=== PATIENT | female | born 1980 | race American Indian/Alaskan Native ===

== ENCOUNTER 2018-08-15 11:34 | Observation (INO) | payer MEDICAID ==
--- NOTE | 2018-08-10 10:29 | Anesthesia Consultation ---
Anesthesia Consult and Med Hx Date of service: 07/18/18 - Airway Anesthetic Teeth Evaluation: Good ROM Head & Neck: Adequate Mental/Hyoid Distance: Adequate Mallampati Class: Class III Intubation Access Assessment: Probably Good - Pulmonary Exam CTA: Yes - Cardiac Exam Cardiac Exam: No Murmur - Pre-Operative Health Status ASA Pre-Surgery Classification: ASA3 Proposed Anesthetic Plan: General - Pulmonary Hx Smoking: Yes (half a pack a day since age 16) Hx Asthma: No COPD: No Hx Pneumonia: No - Cardiovascular System Hx Hypertension: Yes (x 7 years) - Central Nervous System Hx Seizures: No Hx Psychiatric Problems: No - Endocrine Hx Renal Disease: No Hx End Stage Renal Disease: No Hx Hypothyroidism: No Hx Hyperthyroidism: No - Hematic Hx Anemia: No Hx Sickle Cell Disease: No - Other Systems Hx Alcohol Use: Yes (Occas) Hx Cancer: No Hx Obesity: Yes
[2018-08-10 10:32] LABS: Basophils % (Auto) 0.7 % (0.0-1.8); Eosinophils % (Auto) 0.8 % (0.0-4.3); Hematocrit 39.8 % (30.3-42.9); Hemoglobin 13.1 gm/dl (10.1-14.3); Lymphocytes # (Auto) 1.3 K/mm3 (1.2-5.4); Lymphocytes % (Auto) 24.1 % (13.4-35.0); Mean Corpuscular HGB Conc 33 % (30-34); Mean Corpuscular Volume 76 fl (79-97); Monocytes # (Auto) 0.4 K/mm3 (0.0-0.8); Monocytes % (Auto) 7.7 % (0.0-7.3); Platelet Count 183 K/mm3 (140-440); Red Blood Count 5.26 M/mm3 (3.65-5.03); Red Cell Distribution Width 17.8 % (13.2-15.2)
[2018-08-15] MEDS ORDERED: SUBLIMAZE IV PRN (12:50)
[2018-08-15] MEDS ORDERED: ZOFRAN IV PRN ×2 (12:50→18:56)
[2018-08-15] MEDS ORDERED: NARCAN 0.4 MG/1 ML IV PRN (12:50)
[2018-08-15] MEDS ORDERED: SUBLIMAZE IV ONE (12:50)
--- NOTE | 2018-08-15 12:50 | Anesthesia Day of Surgery ---
Anesthesia Day of Surgery - Day of Surgery Patient Examined: Yes Patient H&P Reviewed: Yes Patient is NPO: Yes Beta Blockers: No Cardiac Clearance: No Pulmonary Clearance: No
[2018-08-15] MEDS ORDERED: NEURONTIN PO NR (13:00)
[2018-08-15] MEDS ORDERED: VERSED IV NR (13:00)
[2018-08-15] MEDS ORDERED: LACTATED RINGERS 1,000 ML IV SCH (13:00)
[2018-08-15] MEDS ORDERED: TYLENOL PO NR (13:00)
--- NOTE | 2018-08-15 14:47 | History and Physical Report ---
History of Present Illness Date of examination: 08/15/18 Chief complaint: Symptomatic uterine fibroids History of present illness: Pt is a 37yo BF LMP 07/25/2018 presents for surgical evaluation and treatment of symptomatic uterine fibroids. Patient complains of pelvic pain and prolonged heavy vaginal bleeding. Pelvic ultrasound showed the uterus to be enlarged measuring 9 x 7 x 6 cm with six small fibroids and a complex left ovarian cyst. She desires a Robotic-Assisted Total Hysterectomy with ovarian conservation. Past History Past Medical History: hypertension, GERD Past Surgical History: [employer] History: fibroids Social history: no significant social history, single - Obstetrical History : 5 Medications and Allergies Allergies Allergy/AdvReac Type Severity Reaction Status Date / Time No Known Allergies Allergy Verified 08/09/18 14:49 Home Medications Medication Instructions Recorded Confirmed Last Taken Type amLODIPine [Norvasc] 10 mg PO DAILY 08/09/18 08/15/18 08/15/18 06:00 History Active Meds: Active Medications Acetaminophen (Tylenol) 650 mg PO PREOP NR Stop: 08/15/18 23:59 Last Admin: 08/15/18 13:09 Dose: 650 mg Documented by: Fentanyl (Sublimaze) 50 mcg IV Q5MIN PRN PRN Reason: Pain , Severe (7-10) Stop: 08/15/18 23:59 Gabapentin (Neurontin) 300 mg PO PREOP NR Stop: 08/15/18 23:59 Last Admin: 08/15/18 13:14 Dose: 300 mg Documented by: Hydromorphone HCl (Dilaudid) 0.5 mg IV Q10MIN PRN PRN Reason: Pain , Severe (7-10) Lactated Ringer's (Lactated Ringers) 1,000 mls @ 75 mls/hr IV DIRECT FAISAL Last Admin: 08/15/18 13:05 Dose: 75 mls/hr Documented by: Midazolam HCl (Versed) 2 mg IV PREOP NR Stop: 08/15/18 23:59 Naloxone HCl (Narcan 0.4 Mg/1 Ml) 0.1 mg IV Q2MIN PRN PRN Reason: Res Rate </= 8 or 02 SAT < 92% Ondansetron HCl (Zofran) 4 mg IV ONCE PRN PRN Reason: Nausea And Vomiting Review of Systems All systems: negative - Vital Signs Vital signs: Vital Signs Temp Pulse Resp BP Pulse Ox 99.8 F H 90 20 150/99 99 08/10/18 10:05 08/10/18 10:05 08/10/18 10:05 08/10/18 10:05 08/10/18 10:05 Temp Pulse Resp BP Pulse Ox 98.0 F 84 16 150/99 100 08/15/18 12:00 08/15/18 12:00 08/15/18 13:09 08/15/18 12:00 08/15/18 12:00 - Physical Exam Breasts: Positive: deferred Cardiovascular: Regular rate Lungs: Positive: Clear to auscultation Abdomen: Positive: normal appearance Genitourinary (Female): Positive: normal external genitalia Vagina: Positive: normal moisture Uterus: Positive: enlarged Extremities: Positive: normal Results Result Diagrams: 08/10/18 10:10 All other labs normal. Ultrasound: report reviewed Assessment and Plan - Patient Problems (1) Uterine fibroid Onset Date: 08/15/18 Current Visit: Yes Status: Acute Qualifiers: Uterine leiomyoma location: intramural, submucous, and subserous Qualified Code(s): D25.1 - Intramural leiomyoma of uterus; D25.0 - Submucous leiomyoma of uterus; D25.2 - Subserosal leiomyoma of uterus Plan to address problem: A: Symptomatic uterine fibroids Menorrhagia Left ovarian cyst P: Admit for a Robotic-Assisted Total Hysterectomy with Bilateral salpingectomy (2) Menorrhagia with regular cycle Current Visit: Yes Status: Acute (3) Left ovarian cyst Onset Date: 08/15/18 Current Visit: Yes Status: Acute
[2018-08-15] MEDS ORDERED: ANCEF/STERILE WATER 2 GM/20 ML 2 GM/20 ML SYRINGE IV NR (15:00)
[2018-08-15] MEDS ORDERED: MARCAINE 0.5% INFILTRATI ONE ×2 (16:08)
[2018-08-15] MEDS ORDERED: DIPRIVAN 10 MG/ML IV ONE (16:45)
[2018-08-15] MEDS ORDERED: SUBLIMAZE ONE ×2 (16:45→17:26)
[2018-08-15] MEDS ORDERED: NEO SYNEPHRINE/NS Syringe(OR USE) IV ONE (16:53)
[2018-08-15] MEDS ORDERED: XYLOCAINE MPF 2% ONE (16:53)
[2018-08-15] MEDS ORDERED: ZEMURON IV ONE (16:53)
[2018-08-15] MEDS ORDERED: QUELICIN ONE (16:53)
[2018-08-15] MEDS ORDERED: ROBINUL ONE (16:53)
[2018-08-15] MEDS ORDERED: NEOSPORIN GU IR ONE (17:00)
[2018-08-15] MEDS ORDERED: TYLENOL PO PRN (18:56)
[2018-08-15] MEDS ORDERED: MILK OF MAGNESIA PO PRN (18:56)
[2018-08-15] MEDS ORDERED: NORCO 5/325 PO PRN (18:56)
[2018-08-15] MEDS ORDERED: SODIUM CHLORIDE FLUSH SYRINGE 10 ML IV PRN (18:56)
[2018-08-15] MEDS ORDERED: D5LR 1,000 ML IV SCH (19:00)
[2018-08-15] MEDS ORDERED: APRESOLINE IV PRN (19:26)
[2018-08-15] MEDS ORDERED: APRESOLINE ONE (19:39)
--- NOTE | 2018-08-15 19:44 | Operative Report ---
Operative Report Operative Report: Date of procedure: 08/15/2018 Pre-operative diagnosis: 1. Symptomatic uterine fibroids 2. Menorrhagia 3. Left ovarian cyst Post-operative diagnosis: Same Procedure name(s): 1. Robotic-assisted total hysterectomy 2. Bilateral salpingectomy 3. Left ovarian cystectomy Surgeon: Rayray Flores MD Tow Truck Dispatcher: Maisha Quiros CSA Anesthesia: DORON Block followed by general endotracheal intubation EBL: 100 mL's Findings: A 10-12 week size uterus with multiple fibroids. Left ovarian cyst. Normal tubes bilaterally and normal right ovary. Procedure: After the patient's first correctly identified she was prepped and draped in the usual sterile fashion and placed in the dorsolithotomy position. The bladder was first catheterized using Becker catheter and the speculum was placed in the vagina and the anterior lip of the cervix was grasped using a single-tooth tenaculum, and the medium Vesicare cup was placed. The tenaculum and speculum was then removed from the vagina and attention was then turned to the abdomen. The skin knife was used to make a small incision approximately 5 cm above the umbilicus through which a 12 mm trocar was placed under direct visualization. After adequate amount of abdominal insufflation visualization of the pelvic organs found the uterus to be enlarged and the tubes and ovaries were found to be normal bilaterally. There was a small left ovarian cyst. A right and left paramedian incision was made through which the 8 mm trochars were placed under direct visualization and a 5 mm trocar was placed in the right lower quadrant. The patient was then placed in steep Trendelenburg positioning and the robot was docked on the patient's left side. After all the robotic ports were connected and adequate functioning of the robotic arms were tested the surgeon then proceeded to the console to begin the hysterectomy. First the left round ligament was grasped, cauterized and cut, the left utero- ovarian ligaments were grasped, cauterized and cut, and the left fallopian tube also grasped, cauterized and cut along the mesosalpinx, thus freeing the left ovary from the left uterine sidewall. The left ovarian cyst was incised and drained. The same procedure was performed on the right. The right round ligament was grasped, cauterized and cut, the right utero-ovarian ligaments were grasped, cauterized and cut, and the right fallopian tube also grasped, cauterized and cut along the mesosalpinx, thus freeing the right ovary from the right uterine sidewall. The bladder flap was taken down anteriorly and the uterine vessels were grasped, cauterized and cut bilaterally. The cardinal ligaments were sequentially grasped, cauterized and cut down to the level of the uterosacral ligaments. At this time the posterior colpotomy was performed over the Vcare cup, and the cervix was circumscribed beginning posteriorly and meeting anteriorly until the cervix was freed. The cervix and uterus was then removed through the vagina and sent to pathology. The vaginal cuff was then closed using 2-0 Vloc suture in a running fashion. Irrigation was then performed and after good hemostasis was achieved the procedure was considered complete. The Tisseel sealant was then sprayed across the vaginal cuff site, and after excellent hemostasis was assured Interceed was placed across the vaginal cuff site. Intra-abdominal pressure was dropped to 5 mmHg, and excellent hemostasis was observed. All instruments were then removed from the abdominal cavity. And each incision was closed using 0 Vicryl suture in a [id number] configuration on the fascia followed by 4-0 Monocryl suture in a sub-cuticular fashion on the skin. Each incision was also infiltrated using 0.5% Marcaine solution. The vaginal pack was removed. The patient tolerated the procedure well and was transported to the recovery room in stable condition.
[2018-08-15] MEDS ORDERED: DILAUDID ONE (19:53)
[2018-08-15] MEDS: DILAUDID IV PRN (20:00)
[2018-08-15] MEDS: TORADOL IV SCH (22:44)
[2018-08-15] MEDS: COLACE PO SCH (22:44)
[2018-08-16] MEDS: DILAUDID IV PRN (00:14)
[2018-08-16] MEDS: ANCEF/NS 1 GM/50 ML 1 GM/50 ML BAG IV SCH ×2 (00:24→08:14)
[2018-08-16 06:16] LABS: Hematocrit 39.3 % (30.3-42.9)
[2018-08-16] MEDS: TORADOL IV SCH (06:39)
[2018-08-16] MEDS: PERCOCET 5/325 PO PRN ×2 (08:15→15:00)
--- NOTE | 2018-08-16 09:04 | Progress Note ---
Assessment and Plan - Patient Problems (1) Uterine fibroid Onset Date: 08/15/18 Current Visit: Yes Status: Resolved Qualifiers: Uterine leiomyoma location: intramural, submucous, and subserous Qualified Code(s): D25.1 - Intramural leiomyoma of uterus; D25.0 - Submucous leiomyoma of uterus; D25.2 - Subserosal leiomyoma of uterus (2) Menorrhagia with regular cycle Current Visit: Yes Status: Resolved (3) Left ovarian cyst Onset Date: 08/15/18 Current Visit: Yes Status: Resolved (4) S/P robot-assisted surgical procedure Onset Date: 08/16/18 Current Visit: Yes Status: Resolved Plan to address problem: A: S/P RATH - POD #1 Doing well P: May go home today. Subjective - Subjective Date of service: 08/16/18 Principal diagnosis: s/p RATH - POD #1 Interval history: Pt is s/p a Robotic-Assisted Total Hysterectomy with Bilateral salpingectomy, and feeling well. She is tolerating a reg diet without nausea or voming, ambulating and voiding without difficulty. Patient reports: appetite normal, voiding normally, pain well controlled, flatus, ambulating normally, no dizzy ambulation, no nauseated Objective - Vital Signs Latest vital signs: Vital Signs Temp Pulse Resp BP BP Pulse Ox 08/16/18 06:39 18 08/16/18 04:21 98.9 F 102 H 16 145/87 97 08/16/18 01:50 97.8 F 84 18 150/97 96 08/16/18 00:14 18 08/15/18 22:44 18 08/15/18 20:43 97.5 F L 18 138/80 08/15/18 20:38 97.5 F L 87 18 138/80 99 08/15/18 20:00 87 25 H 143/77 97 08/15/18 19:45 81 27 H 160/92 100 08/15/18 19:40 79 176/103 08/15/18 19:30 82 27 H 176/103 100 08/15/18 19:25 81 27 H 163/91 100 08/15/18 19:20 83 26 H 168/95 100 08/15/18 19:15 89 25 H 161/100 100 08/15/18 19:10 86 21 156/93 100 08/15/18 19:05 80 23 157/86 100 08/15/18 19:02 97.3 F L 83 16 148/94 100 08/15/18 17:00 84 20 156/94 99 08/15/18 16:45 86 20 154/97 99 08/15/18 16:40 73 15 156/95 100 08/15/18 16:35 72 12 151/92 100 08/15/18 16:30 76 12 157/100 100 08/15/18 16:25 76 14 160/97 100 08/15/18 16:20 87 12 155/100 100 08/15/18 16:15 85 14 151/96 100 08/15/18 16:09 82 17 138/92 98 08/15/18 13:09 16 08/15/18 12:00 98.0 F 84 16 150/99 100 Intake and Output 08/15/18 08/16/18 08/16/18 22:59 06:59 14:59 Intake Total 250 50 Output Total 600 Balance -350 50 Intake: IV 250 50 ANCEF/NS 1 GM/50 ML 1 gm 50 In 50 ml @ 100 mls/hr IV Q8H [facility] Rx#:[id number] Output: Urine 600 Other: Voiding Method Indwelling Catheter Indwelling Catheter Weight 97.069 kg - Exam Breasts: Present: deferred Abdomen: Present: normal appearance, soft Extremities: Present: normal Incision: Present: normal, dry, intact - Labs Labs: Laboratory Tests 08/10/18 08/10/18 08/15/18 10:10 10:10 12:30 WBC 5.2 RBC 5.26 H Hgb 13.1 Hct 39.8 MCV 76 L MCH 25 L MCHC 33 RDW 17.8 H Plt Count 183 Lymph % (Auto) 24.1 Traill % (Auto) 7.7 H Eos % (Auto) 0.8 Baso % (Auto) 0.7 Lymph # 1.3 Traill # 0.4 Eos # 0.0 Baso # 0.0 Seg Neutrophils % 66.7 Seg Neutrophils # 3.5 HCG, Qual Negative Blood Type O POSITIVE Antibody Screen Negative 08/16/18 05:53 WBC RBC Hgb 13.0 Hct 39.3 MCV MCH MCHC RDW Plt Count Lymph % (Auto) Traill % (Auto) Eos % (Auto) Baso % (Auto) Lymph # Traill # Eos # Baso # Seg Neutrophils % Seg Neutrophils # HCG, Qual Blood Type Antibody Screen
[2018-08-16] MEDS: COLACE PO SCH (10:58)
--- NOTE | 2018-08-16 11:10 | Post Anesthesia Evaluation ---
- Post Anesthesia Evaluation Patient Participated: Yes Airway Patent: Yes Stable Respiratory Function: Yes Nausea/Vomiting: No Temp > 96.8F: Yes Pain Manageable: Yes Adequeate Hydration: Yes Anesthesia Complications: No
[2018-08-16] MEDS ORDERED: NORVASC PO SCH (12:00)
--- NOTE | 2018-08-16 12:07 | Discharge Summary ---
Providers - Providers Date of Admission: 08/15/18 18:56 Date of discharge: 08/16/18 Attending physician: ROMEO MCGHEE Primary care physician: ROMEO MCGHEE Hospitalization Reason for admission: other (Symptomatic uterine fibroids; Menorrhagia; Left ovarian cyst) Procedure: other (Robotic Assisted Total Hysterectomy with Bilateral Salpingectomy and Left Ovarian cystectomy) Episiotomy: none Laceration: none Incision: normal, dry, intact Other procedures: none complications: none Discharge diagnosis: other (S/P RATH) Hospital course: Pt is a 37yo BF LMP 07/25/2018 who presented for surgical evaluation and treatment of symptomatic uterine fibroids. She complained of pelvic pain and prolonged heavy vaginal bleeding. Pelvic ultrasound showed the uterus to be e nlarged measuring 9 x 7 x 6 cm with six small fibroids and a complex left ovarian cyst. She underwent an uncomplicated Robotic-Assisted Total Hysterectomy with Bilateral Salpingectomy and Left Ovarian cystectomy, and tolerated the procedure well. By POD #1 she was tolerating a reg diet without nausea or vomiting, ambulating and voiding without difficulty. She was therefore discharged to home on POD #1 in stable condition. Condition at discharge: Good Disposition: DC-01 TO HOME OR SELFCARE - Discharge Diagnoses (1) Uterine fibroid Status: Resolved Qualifiers: Uterine leiomyoma location: intramural, submucous, and subserous Qualified Code(s): D25.1 - Intramural leiomyoma of uterus; D25.0 - Submucous leiomyoma of uterus; D25.2 - Subserosal leiomyoma of uterus (2) Menorrhagia with regular cycle Status: Resolved (3) Left ovarian cyst Status: Resolved Plan - Discharge Medications Prescriptions: Ibuprofen [Motrin] 800 mg PO Q8HR PRN #30 tablet PRN Reason: Pain, Mild (1-3) oxyCODONE /ACETAMINOPHEN [Percocet 5/325 mg] 1 tab PO Q6H PRN #30 tablet PRN Reason: Pain, Moderate (4-6) - Provider Discharge Summary Activity: routine, no sex for 6 weeks, no heavy lifting 4 weeks, no strenuous exercise Diet: routine Instructions: routine Additional instructions: [] Smoking cessation referral if applicable(refer to patient education folder for contact #) [] Refer to [facility]'s [facility] Booklet Call your doctor immediately for: * Fever > 100.5 * Heavy vaginal bleeding ( >1 pad per hour) * Severe persistent headache * Shortness of breath * Reddened, hot, painful area to leg or breast * Drainage or odor from incision. * Keep incision clean and dry at all times and follow doctor's instructions regarding bathing/showering - Follow up plan Follow up: ROMEO MCGHEE MD [Primary Care Provider] - 14 Days
[2018-08-16 13:07] VITALS: BP 157/87
== END 2018-08-16 16:05 | disposition home or self-care (01) ==
LOC: OR 11:34 → EDSTATUS 15:45 → OB 18:56
PROVIDERS: ADMIT Obstetrics & Gynecology; ATTEND Obstetrics & Gynecology
DX: D25.9 Leiomyoma of uterus, unspecified (principal); N92.0 Excessive and frequent menstruation with regular cycle; N83.202 Unspecified ovarian cyst, left side; K21.9 Gastro-esophageal reflux disease without esophagitis; I10 Essential (primary) hypertension; Z98.890 Other specified postprocedural states; Z79.899 Other long term (current) drug therapy; Z90.79 Acquired absence of other genital organ(s)
CPT/HCPCS: 36415; 58552; 64450; 84703; 85014; 85018; 85025; 86850; 86900; 86901; 88307; 96365; 96366; 96375; 96376; C1765; C9250; G0378; J0330; J0360; J0690; J1170; J1885; J2250; J2370; J2704; J3010; J7120; J7121; S2900